=== PATIENT | male | born 1960 | race Caucasian/White ===

== ENCOUNTER → 2017-03-17 | Day surgery (SDC) | payer OTHER ==
[2017-03-13 15:48] VITALS: BMI 36.0
[~2017-03-17] VITALS: Ht 188 cm; Wt 127.3 kg
[~2017-03-17] MED LIST: ASPEC81 PO; ATOR10TA88 PO; ATROPINE SULFATE 0.1 MG/ML 5ML SYR IV PRN; BACITRACIN OINT 15 GM TUBE ONE; BUPIVACAINE 0.5 % 5 MG/1 ML MPF 30ML VIAL ONE; CEFAZOLIN 3000 MG/65 ML D5W IV SCH; CEFAZOLIN IV 3,000 MG/65 ML D5W IV ONE; CPRDOTS OTL; CYCL10TA6 PO; DEXAMETHASONE SOD INJ 4 MG/ML VIAL ONE; EpHEDrine SULFATE INJ 50 MG/ML AMP IV PRN; FENTANYL CITRATE INJ 50 MCG/1 ML 2 ML VIAL ONE; FLUMAZENIL 0.1 MG/1 ML 10 ML VIAL IV PRN; FLUT0.15 NAE; FURO-85 PO; GARL10007 PO; GLUCTAB7 PO; HYDROmorphone INJ 1 MG/ML SYR ONE; HYDROmorphone INJ 2 MG/ML SYR/VIAL IV PRN; IBUP-1277 PO; KETOROLAC TROMETHAMINE 30 MG/ML VIAL IV STA; KETOROLAC TROMETHAMINE 30 MG/ML VIAL ONE; LABETALOL HCL IV 5 MG/ML 20ML IV PRN; LACTATED RINGER'S 1000ML 1,000 ML IV SCH; LIDOCAINE HCL 1% 20 ML VIAL ONE; LIDOCAINE HCL 2% 2 ML VIAL (20MG/ML) ONE; LUTE20TA PO; MELO7.5T5 PO; MEPERIDINE HCL 25 MG/ML CARP IV PRN; MIDAZOLAM HCL 1 MG/ML 2ML VIAL ONE; MONT1TAB5 PO; MULT-506 PO; MoRPHine SULFATE 4 MG/ML 1 ML CARP\\VIAL IV PRN; NALOXONE HCL 0.4 MG/1 ML VIAL/CARP IV PRN; ONDANSETRON INJ 2 MG/ML 2 ML VIAL IV PRN; ONDANSETRON INJ 2 MG/ML 2 ML VIAL ONE; OXYC-57 PO; OXYCODONE/ACETAMINOPHEN 5-325 TAB PO PRN; PHENYLEPHRINE 100MCG/ML 5ML SYR IV PRN; PROPOFOL IV EMULSION 10 MG/ML 20 ML VIAL IV ONE; SODIUM CHLORIDE 0.9% 1000ML 1,000 ML IV SCH; TAMS0.4C59 PO; TRAZ50TA35 PO
[2017-03-17 09:12] VITALS: Ht 188 cm; Wt 127.3 kg
--- NOTE | 2017-03-17 09:48 | History & Physical Bridge Note ---
H&P Re-Evaluation Bridge Note: I have examined the patient, reviewed the History & Physical and in the interval since the performance of the History & Physical I have noted the following changes of clinical significance: No changes noted
--- NOTE | 2017-03-17 11:23 | [facility] Post Operative Brief Note ---
Immediate Operative Summary Operative Date Mar 17, 2017. Pre-Operative Diagnosis Right Inguinal Hernia Post-Operative Diagnosis Same as preoperative Procedure(s) Performed Open Right Inguinal Hernia Repair with Mesh Surgeon Dr. Wallace Taylor Enroute Controller Surgeon(s) regional vice president surgical sales Estimated Blood Loss 10ML Findings right inguinal hernia Fluids (cc crystalloids) 800ml Specimens None per surgeon Drains none Anesthesia LMA Complication(s) None Disposition Recovery Room / PACU
--- NOTE | 2017-03-17 11:28 | Discharge Instructions ---
Discharge Instructions Date of Service Mar 17, 2017. Visit Reason for Visit: Right Inguinal Hernia Discharge Discharge Diagnosis / Problem: open repair right inguinal hernia with mesh Discharge Goals Goal(s): Decrease discomfort, Improve function Activity Recommendations Activity Limitations: per Instructions/Follow-up section Lifting Limitations: no more than 25 pounds Exercise/Sports Limitations: rest today May Resume Sexual Activity: when tolerated Shower/Bathe: may shower/bathe in 3 days Driving or Machine Use: resume 3 days after discharge Anesthesia . Post Anesthesia Instructions: If you have had General Anesthesia or IV Sedation: * Do not drive today. * Resume driving when surgeon permits. * Do not make important decisions or sign legal documents today. * Call surgeon for: 1. Temperature elevations greater than 101 degrees F. 2. Uncontrollable pain. 3. Excessive bleeding. 4. Persistent nausea and vomiting. 5. Medication intolerance (nausea, vomiting or rash). * For nausea and vomiting use only clear liquids such as: tea, soda, bouillon until nausea subsides, then gradually increase diet as tolerated. * If you have any concerns or questions, call your surgeon's office. If physician is unavailable and it is an emergency, call 911 or go to the nearest emergency room. . Instructions / Follow-Up Instructions / Follow-Up keep the dressing on for 4 days, he can take a shower on 03/21/2017, no driving while taking pain medicine, follow up 1 week, Diet Recommendations Recommended Home Diet: resume previous diet Procedures Procedures Performed: Open Right Inguinal Hernia Repair with Mesh Pending Studies Studies pending at discharge: no Medical Emergencies . Who to Call and When: Medical Emergencies: If at any time you feel your situation is an emergency, please call 911 immediately. . Non-Emergent Contact Non-Emergency issues call your: Surgeon Call Non-Emergent contact if: you have a fever, temperature is above 100.5, your pain is not controlled, your pain is worsening, wound has increased drainage, wound has increased redness . . "Provider Documentation" section prepared by Wallace Taylor. . [place] Drug Monitoring Program Search Results: no issues identified
[2017-03-17] MEDS: FENTANYL CITRATE INJ 50 MCG/1 ML 2 ML VIAL IV PRN ×4 (11:39→12:14)
--- NOTE | 2017-03-17 11:43 | Anesthesiology Progress Note ---
Anesthesia Post Op Note Date & Time Mar 17, 2017 at 11:43 Vital Signs Pain Intensity: 4 Vital Signs Past 12 Hours Date Time Temp Pulse Resp B/P (MAP) Pulse Ox O2 Delivery O2 Flow Rate FiO2 03/17/17 11:30 68 14 130/80 100 Oxymask 10 03/17/17 11:22 36.5 71 20 133/83 100 Oxymask 10 Notes Mental Status: alert / awake / arousable, participated in evaluation Pt Amnestic to Procedure: Yes Nausea / Vomiting: adequately controlled Pain: adequately controlled Airway Patency, RR, SpO2: stable & adequate BP & HR: stable & adequate Hydration State: stable & adequate Anesthetic Complications: no major complications apparent
[2017-03-17 12:48] VITALS: BP 134/71; PULSE 63; TEMP 36.7; O2SAT 95
[2017-03-17 13:13] VITALS: BP 139/74; PULSE 64; O2SAT 94
[2017-03-17 13:45] VITALS: BP 149/68; PULSE 67; TEMP 36.9; O2SAT 96
--- NOTE | 2017-03-17 15:00 | OPERATIVE REPORT ---
DATE OF OPERATION: 03/17/2017 PREOPERATIVE DIAGNOSIS: Right inguinal hernia. POSTOPERATIVE DIAGNOSIS: Same. PROCEDURE: Open repair, right inguinal hernia with mesh. SURGEON: Dr. Wallace Taylor. ANESTHESIA: General. ESTIMATED BLOOD LOSS: About 5 mL. FINDINGS: Right indirect inguinal hernia. COMPLICATIONS: None. INDICATIONS FOR THE PROCEDURE: This is a 56-year-old gentleman who presented with right inguinal hernia with pain and bulging. The patient required open repair of right inguinal hernia with mesh. I did talk to the patient about the benefit and risk, alternate procedure. I indicated the risks may include but not limited such as bleeding, infection, hernia recurrence, chronic incision pain, may need more procedure; the patient understands. He signed informed consent and I answered all questions. DETAILS OF PROCEDURE: We brought the patient to the OR, put the patient in the supine position. The patient received SCDs on bilateral legs to prevent DVT. Also, the patient received 2 grams Ancef IV for prophylactic antibiotic. The patient received general anesthesia without difficulty. The abdomen was prepped and draped in routine sterile fashion. After time out, we made about a 4 cm incision on the right inguinal area, open subQ tenderness layer and exposed the external oblique and then we opened the external oblique and mobilized the cord structure, put the Sp[place] then we found the patient has indirect hernia. The hernia sac was mobilized and then returned to the abdominal cavity that shows a large plug to blockage the hernia and then I chose a 3 x 5 cm mesh to reinforce the posterior wall and I used 2-0 Prolene mesh to the inguinal ligament continuing around and then I used another 2-0 Prolene mesh to the conjoined tendon layer continuous running to suture meeting together briana. Hemostasis obtained. Then I used 2-0 Vicryl to closed the external oblique with continuous running. Then I used another 2-0 Vicryl. Closed subcutaneous layer continuous running. Used 4-0 Vicryl, closed skin continuous running. We put the dressing on. All the instrument, needle and sponge count correct x2 at the end of case. The patient tolerated the procedure well and was transferred to recovery room in stable condition. After the procedure, I did talk to the patient's family member about OR finding and procedure we did. Also, I gave them the postop care instruction they understand. I attest to the content of the Intraoperative Record and any orders documented therein. Any exceptions are noted below. DOMINIQUE
== END | disposition home or self-care (01) ==
LOC: C.ACU 08:48
PROVIDERS: ATTEND Surgery
DX: K40.90 Unilateral inguinal hernia, without obstruction or gangrene, not specified as recurrent (principal); E11.9 Type 2 diabetes mellitus without complications; E78.5 Hyperlipidemia, unspecified; N52.9 Male erectile dysfunction, unspecified; Z82.3 Family history of stroke; Z82.49 Family history of ischemic heart disease and other diseases of the circulatory system; Z82.0 Family history of epilepsy and other diseases of the nervous system; Z84.1 Family history of disorders of kidney and ureter; Z79.899 Other long term (current) drug therapy; Z79.82 Long term (current) use of aspirin